=== PATIENT | female | born 1975 | race American Indian/Alaskan Native ===

== ENCOUNTER 2017-04-10 10:46 | Day surgery (SDC) | payer MEDICAID ==
[2017-04-10 11:46] LABS: BLOOD UREA NITROGEN 16 mg/dl (7-17); CALCIUM 8.9 mg/dL (8.4-10.2); CARBON DIOXIDE 27 mmol/L (22-30); CHLORIDE 106 mmol/L (98-107); GFR AFRICAN-AMERICAN > 60; GLUCOSE,RANDOM 98 mg/dL (65-105); SODIUM 143 mmol/l (132-148)
[2017-04-10 12:11] VITALS: BMI 31.8
[2017-04-10] MEDS ORDERED: ceFAZolin IV 2 gm in Dextrose 2 GM/50 ML BAG IVPB ONE (13:41)
[2017-04-10] MEDS ORDERED: Lidocaine 1% Inj (20ml) IJ ONE (13:41)
[2017-04-10] MEDS ORDERED: Bupivacaine 0.5% Inj(30mL) IJ ONE (13:41)
[2017-04-10] MEDS ORDERED: Sodium Chloride 0.9% 1,000 ML IV SCH (13:45)
--- NOTE | 2017-04-10 13:46 | CP.PCM.PN ---
Subjective - Date & Time of Evaluation Date of Evaluation: 04/10/17 Time of Evaluation: 13:43 - Subjective Subjective: 42 y/o female seen at bedside in [facility] for pre operative evaluation for right foot surgery. Pt states she injured her foot and ankle 20 years ago but more recently has been feeling pain when she bears weight. Pt states she feels it most on the outside of her right ankle. Pt states it is difficult to stand on her feet long periods of time. Pt admits to a PMHx of hypertension, controlled by medication. Pt confirms NPO status after 10pm last night. PSH: denies All: NKDA Social: social EtOH; 1 pack cigs per 3 days; denies illicit drug use Objective - Vital Signs/Intake and Output Vital Signs (last 24 hours): Temp Pulse Resp BP Pulse Ox 98.5 F 72 20 146/100 H 97 04/10/17 11:49 04/10/17 11:55 04/10/17 11:49 04/10/17 11:49 04/10/17 11:49 - Labs Labs: 04/10/17 10:15 - Constitutional Appears: Well, Non-toxic, No Acute Distress - Extremities Exam Additional comments: RLE focused exam: VASC: DP/PT pulses palpable 2/4. No pedal edema. Temp gradient warm to cool. CFT < 3 sec to all digits Derm: No ecchymosis, no breaks in skin or soft tissue, no interdigital maceration, no clinical signs of infection Neuro: Protective sensation grossly intact Ortho: Tenderness elicited upon active and passive inversion. Mild tenderness elicited upon active and passive eversion. Pt unable to perform active ankle circumduction due to pain and guarding. (-) anterior drawer test. No tenderness elicited to palpation of lateral ankle along course of peroneal tendons. - Neurological Exam Neurological Exam: Alert, Awake, Oriented x3 - Psychiatric Exam Psychiatric exam: Normal Affect, Normal Mood Assessment and Plan - Assessment and Plan (Free Text) Assessment: 42 y/o female in [facility] for pre op evaluation prior to right foot surgery with peroneal tendon and Lisfranc injury repair Plan: Pt was seen and examined in [facility] Pt NPO status was confirmed All Pre-op testing and clearance was in the chart Pt has exhausted all conservative treatment at this time and is opting for surgical intervention Pt was explained procedure and post-operative course All pt's questions were answered to satisfaction No guarantees were made Pt understands all risks, benefits and complications of procedure Pt will follow-up with Dr. Hernandez
--- NOTE | 2017-04-10 13:55 | CP.SDSHP ---
Same Day Surgery H & P - History Proposed Procedure: right foot peroneal tendon repair, right foot Lisfranc injury repair Pre-Op Diagnosis: right foot peroneal tendon subluxation, ankle instability - Previous Medical/Surgical History Cardiac: Hypertension Pain: 4.Moderate Pain Previous Surgical History: none - Allergies Allergies: Allergies No Known Allergies Allergy (Verified 04/06/17 19:08) - Physical Exam Vital Signs: Vital Signs 04/10/17 04/10/17 11:49 11:55 Temperature 98.5 F Pulse Rate 72 72 Respiratory 20 Rate Blood Pressure 146/100 H O2 Sat by Pulse 97 Oximetry Mental Status: Alert & Oriented x3 Neuro: WNL - {Optional Preform as Required} Integument: WNL (no breaks in skin or soft tissue) Ortho: Other (tenderness upon active inversion of eversion of R foot, unable to perform R ankle circumduction) - Impression Impression: Pt was seen and examined in [facility]. Pt NPO status was confirmed. All Pre-op testing and clearance was in the chart. Pt has exhausted all conservative treatment at this time and is opting for surgical intervention. Pt was explained procedure and post-operative course. All pt's questions were answered to satisfaction. No guarantees were made. Pt understands all risks, benefits and complications of procedure. Pt will follow-up with Dr. Hernandez - Date & Time Date: 04/10/17 Time: 13:57 Short Stay Discharge - Short Stay Discharge Admitting Diagnosis/Reason for Visit: M76.71/S93.326D/S86.311D Disposition: HOME/ ROUTINE Referrals: Ray Laura MD [Primary Care Provider] - Instructions: RICE Therapy (GEN) Additional Instructions (Diet, Activity): Patient in good/stable condition for discharge home. Pt to resume medications per medical reconciliation. Resume regular diet. Please keep dressing clean, dry, & intact to surgical site, use plastic bag over bandage for showering, wear post op shoe at all times when ambulating Call clinic if you see signs of infection (redness, swelling, malodor) Please make an appointment to see Dr. Hernandez in office/clinic within 1 week for post-op check. Progress Note/Discharge Note with Instructions: Patient evaluated bedside in recovery s/p surgical procedure. - After surgical procedure patient in NAD - (+) Void, (+) Appetite - Capillary refill time <3s and NVSI intact. - Patient denies complaints at this time - Post operative instructions and plan of care explained to patient at length. - Pt. acknowledges understanding. - Patient stable for D/C per podiatric surgery
[2017-04-10] MEDS ORDERED: Lidocaine 2% Jelly (5 ml) TOP ONE (14:25)
[2017-04-10] MEDS ORDERED: Midazolam 2 MG/2 ML VIAL ONE (14:25)
[2017-04-10] MEDS ORDERED: Propofol 10 mg/ml Inj (20 ML) ONE ×2 (14:25→15:49)
[2017-04-10] MEDS ORDERED: MethylPREDNISolone Depo 40 mg/ml Inj ONE (14:41)
[2017-04-10] MEDS ORDERED: Dexamethasone 4 mg/1 ml ONE (14:41)
[2017-04-10] MEDS ORDERED: ceFAZolin IV 1 gm in Dextrose 2 GM/100 ML BAG IVPB ONE (14:42)
[2017-04-10] MEDS ORDERED: Bupivacaine 0.5% Inj(30mL) ONE (14:42)
[2017-04-10] MEDS ORDERED: Lidocaine 1% Inj (20ml) ONE (14:42)
[2017-04-10] MEDS ORDERED: Bupivacaine HCl 0.25% PF (30 ml) Inj ONE (15:19)
[2017-04-10] MEDS ORDERED: Lactated Ringer's 1,000 ML IV ONE (15:40)
[2017-04-10] MEDS ORDERED: Lactated Ringer's 500 ML IV ONE (18:36)
[2017-04-10] MEDS ORDERED: HYDROmorphone 0.5 mg/0.5 ml ISec IVP PRN (18:38)
--- NOTE | 2017-04-10 18:39 | PCM.SURG1 ---
Surgeon's Initial Post Op Note - Surgeon's Notes Surgeon: Dr. Alvin Hernandez [facility] Consultant: Dr. Dereck Gillis PGY-3, Dr. Fortino Jett PGY-3, Dr. Oliver Linda PGY-3 Type of Anesthesia: General Endo Anesthesia Administered By: Dr. Jeff Pre-Operative Diagnosis: right foot peroneal tendon subluxation, Lisfranc joint complex instability Operative Findings: see operative report. Arthrex TightRope x 3. S: 4-0, 3-0, 2-0 Vicryl, 4-0 Prolene. 10 mL 0.5% Marcaine plain post-op Post-Operative Diagnosis: same Operation Performed: right peroneal tendon groove deepening, Lisfranc joint repair with Arthrex Tightrope Specimen/Specimens Removed: none Estimated Blood Loss: EBL {In ML}: 10 Blood Products Given: N/A Drains Used: No Drains Post-Op Condition: Good Date of Surgery/Procedure: 04/10/17 Time of Surgery/Procedure: 18:39
[2017-04-10] MEDS ORDERED: Oxycodone/Acetaminophen 5/325 mg Tab PO PRN ×2 (18:42)
--- NOTE | 2017-04-10 18:44 | PCM.ANESB2 ---
Popliteal Nerve Block - Popliteal Nerve Block Date of Procedure: 04/10/17 Anesthesiologist: Dr. Jeff Pre-Procedure Diagnosis: S/P right foot peroneal tendon repair and Lisfranc injury repair Post-Procedure Diagnosis: S/P right foot peroneal tendon repair and Lisfranc injury repair Procedure Performed: Popliteal Nerve Block Right - Procedure Popliteal Nerve Block: This procedure was explained to the patient that it is for post-operative pain management. Consent was obtained after a thorough discussion with the patient regarding the benefits and possible complications of local anesthetic block of the sciatic nerve at the popliteal level. The patient was brought to the operating room and standard monitors are applied. Time-out was held with the circulating nurse to confirm the correct surgery and the appropriate block. After the surgery while still under general anesthesia, patient's operative leg was gently raised and supported and the groove in between the biceps femoris and vastus lateralis muscles was carefully palpated. The skin approximately 8cm above the popliteal crease was then marked. The ultrasound transducer was then applied to the posterior thigh approximately 8cm above the popliteal crease in the transverse plane and the sciatic nerve before its division was visualized lateral to the popliteal artery and in between the bicep femoris and semimembranosus/semitendinosus muscles. After identification, the lateral portion of the thigh was prepped with Chloraprep solution. At this point, a # 21 gauge Stimuplex insulated 4 inch needle was inserted into pre-marked area and advanced in a perpendicular direction. The needle was inserted above the ultrasound transducer in-plane towards the sciatic nerve in a [id number] direction. Needle advancement was performed carefully under direct ultrasound visualization. Nerve stimulator was used and dorsiflexion of the left foot was elicited at a current of 0.3 MA. After repeated negative aspiration, 5cc of 0.25% Bupivacaine was injected and this was flowed with 25cc of 0.25% Bupivacaine. Under ultrasound guidance the local anesthetics were observed surrounding sciatic nerve . The needle was removed intact and sterile dressing was applied. The patient tolerated the popliteal nerve block well with stable vital signs and was subsequently awaken from anesthesia. Patient transported to PACU in stable condition.
[2017-04-10] MEDS ORDERED: Lactated Ringer's 1,000 ML IV SCH (18:45)
[2017-04-10 20:05] VITALS: O2SAT 96
[2017-04-10 20:37] VITALS: BP 143/87; PULSE 89; RESP 19; TEMP 97.9
--- NOTE | 2017-04-11 13:19 | RAD ---
PROCEDURE: Right Foot Radiographs. HISTORY: s/p right foot surgery COMPARISON: None. FINDINGS: BONES: Patient status post podiatric procedure with anchors identified at the proximal 2nd metatarsal bone and middle cuneiform bone as well as at the medial cuneiform bone and possibly proximal 1st metatarsal bone. Postop soft tissue changes are identified. Apparent K-wire noted at the fibula versus artifact. JOINTS: Normal. SOFT TISSUES: Normal. OTHER FINDINGS: None. IMPRESSION: Postop changes as discussed above. No fracture appreciated or dislocation.
--- NOTE | 2017-04-20 09:43 | OP ---
PROCEDURE DATE: 04/10/2017 PREOPERATIVE DIAGNOSES: 1. Right foot peroneal tendon subluxation. 2. Right foot peroneal tendon tear and tendinosis. 3. Right foot Lisfranc ligament instability. POSTOPERATIVE DIAGNOSES: 1. Right foot peroneal tendon subluxation. 2. Right foot peroneal tendon tear and tendinosis. 3. Right foot Lisfranc ligament instability. PROCEDURE PERFORMED: 1. Right foot peroneal tendon groove deepening. 2. Right foot peroneal tendon debridement. 3. Right foot Lisfranc ligament repair and augmentation. SURGEON: Alvin Walker DPM ASSISTANTS: Dereck Gillis DPM, Fortino Jett DPM, Oliver Linda DPM TYPE OF ANESTHESIA: General sedation. ANESTHESIOLOGIST: Carlton Jeff MD INDICATIONS: This patient is a 42-year-old female with the aforementioned diagnoses. The patient has been treated by Dr. Walker in his office on an outpatient basis where she has exhausted multiple forms of conservative treatment options. The patient presents for surgical intervention at this time. All alternatives, benefits, complications, and risks of surgical procedure were explained to the patient at length. The patient verbalizes understanding and wished to proceed. All questions were addressed and answered. No guarantees were given or implied. The consent was signed and the n.p.o. status was confirmed prior to bringing the patient into the operating room. OPERATIVE PROCEDURE: The patient was brought into the operating room, placed on operative table in the supine position. A pneumatic thigh tourniquet was placed around the patient's right thigh. After induction of general anesthesia, the right foot and ankle were then prepped and draped in the usual sterile manner and the procedure began. PROCEDURE #1: Right foot peroneal tendon groove deepening. Attention was directed to the lateral aspect of the patient's right ankle where a curvilinear incision was made overlying the distal posterior aspect of the lateral malleolus. The incision was deepened through the superficial and subcutaneous tissues utilizing a sharp and blunt dissection. Care was taken to retract all vital neurovascular structures throughout the duration of the procedure. All superficial bleeding vessels were cauterized utilizing electrocautery. Dissection was then carried down to the level of the peroneal retinaculum where a 15-blade was utilized to make a linear incision. The peroneal tendon sheaths were then encountered and dissecting scissors were utilized to make a linear incision through the peroneal tendon sheath, thus exposing the peroneal longus and peroneal brevis tendons. It was noted at this time after expansion of the posterior aspect of the lateral malleolus, that there was a shallow and nonexistent groove for the peroneal tendons at the retromalleolar aspect. With the distal aspect of the lateral malleolus exposed, a guidewire from the [employer]ynthes 2.4 mm cannulated screw set was utilized and inserted in to the distal aspect of the fibula and advanced proximally up the fibular shaft. Intraoperative fluoroscopy was utilized to confirm the appropriate location of the guidewire. Once the guidewire was in the appropriate position, the Synthes 2.4 mm cannulated drill was utilized to drill the posterior and lateral most aspect of the fibula just deep to the retromalleolar groove. The drill was inserted to an appropriate depth utilizing intraoperative fluoroscopy. Next, a guidewire for the Synthes 2.7-mm drill was inserted in the same location. Once position was confirmed utilizing intraoperative fluoroscopy, the 2.7 mm cannulated drill was inserted over the guidewire and drilled to the same depth utilizing intraoperative fluoroscopy. The Synthes 3.5-mm cannulated drill was then inserted in a similar fashion and used to drill and sequentially widen the previously drilled drill hole. Once the drill hole was confirmed to be wide enough, a tamp was utilized to tamp and collapse the posterior aspect of the lateral malleolus to recreate the retromalleolar groove. After the tamping was performed, it was noted that the retromalleolar groove was recreated and the depth was appropriate to accommodate the peroneal tendons. The surgical area was then flushed with copious amounts of sterile normal saline. Bone wax was then applied in the retromalleolar groove to prevent excessive osteophyte formation. It was noted at this time while putting the ankle joint through range of motion that the peroneal tendon remained within the retromalleolar groove, glided smoothly and did not sublux. PROCEDURE # 2: Right foot peroneal tendon debridement. Utilizing the same surgical incision, the peroneal tendons were inspected. It was noted at this time, there were multiple longitudinal intrasubstance tears within the peroneal longus and peroneal brevis tendons at the location of the retromalleolar aspect. Utilizing the [place] debrider, the peroneal longus and peroneal brevis tendons were debrided in the location of the intrasubstance tears. Once debridement was completed, the tendons were flushed with copious amounts of sterile normal saline. The tendons were then repositioned within their anatomic position in the retromalleolar groove and the peroneal tendon sheath was reapproximated utilizing 2-0 Vicryl suture. The peroneal retinaculum was then reapproximated utilizing 3-0 Vicryl suture. The subcutaneous tissues were then reapproximated utilizing 4-0 Vicryl suture. The skin was reapproximated utilizing 4-0 chromic suture. PROCEDURE # 3: Right foot Lisfranc ligament stabilization and augmentation. Attention was then directed to the medial aspect of the patient's mid foot where a linear longitudinal incision was made directly overlying the medial cuneiform. The incision was deepened through superficial and subcutaneous tissues utilizing sharp and blunt dissection. Care was taken to retract all vital neurovascular structures. Throughout the duration of the procedure, all superficial bleeding vessels were cauterized utilizing electrocautery. The tibialis anterior tendon and the hallucis longus tendons were identified and retracted and protected throughout the duration of the procedure. Dissection was then carried down to the level of the medial cuneiform where a 15-blade was utilized making a linear longitudinal incision through the periosteum. A [place] elevator was then utilized to free the periosteum from the medial aspect of the medial cuneiform. Once the medial cuneiform was adequately exposed, the guidewire from the first Arthrex [employer]oc[employer] mini tightrope anchor was inserted through the medial cuneiform laterally across the intermediate and lateral cuneiforms to serve as the intercuneiform stabilization. Intraoperative fluoroscopy was utilized to confirm the appropriate location of the guidewire. Next, the cannulated under-drill from the Arthrex set was utilized per standard technique to drill over the guidewire. This was done also under intraoperative fluoroscopy. Next, the Arthrex cannulated over-drill from the set was utilized per standard technique to drill through the medial and lateral cortex of just the medial cuneiform. This was also confirmed utilizing intraoperative fluoroscopy. The guidewire and drill bit were then removed and the drill hole was tapped with the appropriate tap from the set. The first Arthrex Bio-c[employer]crew mini tightrope was then inserted across the cuneiforms utilizing standard technique. Intraoperative fluoroscopy was used throughout this process to confirm appropriate positioning. Next, a second Arthrex [employer] mini-Tightrope guidewire was inserted just distal to the previously inserted Tightrope angled in the direction of the Lisfranc ligament and to the base of the second metatarsal. Intraoperative fluoroscopy was utilized to confirm the appropriate position of the guidewire. Then, utilizing a similar technique, the cannulated under-drill and over-drill were utilized to drill in preparation for the Tightrope per standard technique. The drill bits and guidewire were then removed from the prepared area and it was tapped with the appropriate tap from the Arthrex set. A second Arthrex mini-Tightrope Biocorkscrew was then inserted into the medial cuneiform angled distally into the base of the second metatarsal to recreate the Lisfranc ligament. Intraoperative fluoroscopy was again utilized and it was confirmed that the Tightrope was in the appropriate position. The surgical area was then flushed with copious amounts of sterile normal saline. The periosteal layer was then reapproximated utilizing 3-0 Vicryl suture. The subcutaneous tissues were reapproximated utilizing 4-0 Vicryl suture. The skin was reapproximated utilizing 4-0 Prolene suture. Intraoperative injections consisted of 10 mL of 0.5% Marcaine plain. Postoperative bandages consisted of Xeroform, DSD, Anu, cast padding, a posterior splint, and [place]onte bandages. POSTOPERATIVE CONDITION: The patient tolerated the procedure and anesthesia well with no complications or complaints. The patient was escorted from the OR to the recovery room with vital signs stable and neurovascular status intact. The patient will follow up with Dr. Walker in his office on an outpatient basis. Dereck Gillis DPM Alvin Walker DPM [id number]
== END 2017-04-10 20:30 | disposition home or self-care (01) ==
LOC: H.OPSURG 10:46 → H.MEDSURG1 20:16 → H.OPSURG 20:30
PROVIDERS: ATTEND Podiatrist Foot & Ankle Surgery
DX: S93.331A Other subluxation of right foot, initial encounter (principal); S39.013A Strain of muscle, fascia and tendon of pelvis, initial encounter; X58.XXXA Exposure to other specified factors, initial encounter; M25.374 Other instability, right foot; I10 Essential (primary) hypertension
CPT/HCPCS: 11043; 28200; 36415; 73620; 80048; 97161; C1713; C1769; G8978; G8979; G8980; J0690; J2001; J2250; J2704; J2765; J3010; J7030; J7040; J7120